=== PATIENT | female | born 1970 | race Caucasian/White ===

== ENCOUNTER → 2017-09-15 | Outpatient (CLI) | payer BC ==
[~2017-09-15] MED LIST: AZIT250 PO; CEFU250 PO; CLOB.05TO; Celebrex200 MG PO; Cipro500 MG PO; Colace250 MG PO; ERGO50000 PO; Faslodex250 MG/5 M IM; Flagyl500 MG PO; HYDACE5; HYDACE5 PO; HYDR1TAB94 PO; IBUP800; IBUP800 PO; LEVFLO500 PO; Norco 5-325 Ta1 EACH PO; ONDA4 PO; PHENA200 PO; PRED10 PO; PSEU120ER PO; RXPHEN200 PO; SERT50 PO; SOMA350 MG PO; TAMO10 PO; TAMO20; VALA500 PO; Vistaril25 MG PO; [UNRECOGNIZED DRUG - REMARK]
== END ==
LOC: LAB SHORT 18:52 → LAB EV 18:52
DX: L08.9 Local infection of the skin and subcutaneous tissue, unspecified (principal)
CPT/HCPCS: 87070; 87077; 87147; 87186

== ENCOUNTER → 2018-08-11 | Outpatient (CLI) | payer OTHER, BC | END | disposition home or self-care (01) | LOC: LAB SHORT 16:52 → LAB EV 16:52 | DX: R30.0 Dysuria (principal) | CPT/HCPCS: 87086 ==

== ENCOUNTER → 2019-07-06 | Outpatient (CLI) | payer BC | LOC: LAB SHORT 16:01 → LAB EV 16:01 | DX: J02.9 Acute pharyngitis, unspecified (principal) | CPT/HCPCS: 87081; 87147 ==

== ENCOUNTER 2021-05-21 14:37 | Emergency (ER) | payer OTHER, BC ==
[~2021-05-21] VITALS: Ht 162.6 cm; Wt 79.4 kg
[2021-05-21 15:18] LABS: BASOPHILS ABSOLUTE AUTO 0.05 K/mm3 (0.00-0.23); BASOPHILS PERCENT AUTO 1 % (0-2); EOSINOPHILS ABSOLUTE AUTO 0.12 K/mm3 (0.00-0.68); EOSINOPHILS PERCENT AUTO 2 % (0-6); Hematocrit 37.9 % (33.0-51.0); Hemoglobin 12.4 g/dL (11.5-16.0); IMMATURE GRAN ABSOLUTE AUTO 0.01 K/mm3 (0.00-0.10); IMMATURE GRAN PERCENT AUTO 0 % (0-1); LYMPHOCYTES ABSOLUTE AUTO 1.82 K/mm3 (0.84-5.20); LYMPHOCYTES PERCENT AUTO 27 % (21-46); MONOCYTES ABSOLUTE AUTO 0.45 K/mm3 (0.16-1.47); MONOCYTES PERCENT AUTO 7 % (4-13); Mean Corpuscular HGB 28.9 pg (26.0-34.0); Mean Corpuscular HGB Conc 32.7 g/dL (31.5-36.5); Mean Corpuscular Volume 88 fL (80-100); Mean Platelet Volume 9.7 fL (9.1-12.4); NEUTROPHILS ABSOLUTE AUTO 4.25 K/mm3 (1.96-9.15); NEUTROPHILS PERCENT AUTO 64 % (41-73); Platelet Count 268 K/mm3 (150-400); RDW Coefficient Variation 12.9 % (11.7-14.2); RDW Standard Deviation 41.8 fL (35.1-46.3); Red Blood Cell Count 4.29 M/mm3 (3.80-5.20)
[2021-05-21 15:52] LABS: Albumin, Blood 3.8 g/dL (3.4-5.0); Albumin/Globulin Ratio 1.1 (0.8-1.8); Bilirubin, Total 0.3 mg/dL (0.1-1.0); Bun/Creatinine Ratio 18.4 (12.0-20.0); Calcium, Blood 8.9 mg/dL (8.5-10.1); Creatinine, Blood 0.98 mg/dL (0.40-1.00); Globulin, Blood 3.4 g/dL (2.2-4.0); Potassium, Blood 4.1 mmol/L (3.5-5.5); Total Protein, Blood 7.2 g/dL (6.4-8.2)
[2021-05-21 19:06] LABS: Source, Urine Voided
[2021-05-21 19:13] LABS: Appearance, Urine Clear (Clear); Bilirubin, Urine Neg (Neg); Blood, Urine 1+ (Neg); Color, Urine Yellow (P-Yellow); Glucose Qualitative, Urine Neg (Neg); Ketones, Urine Neg (Neg); Leukocyte Esterase, Urine Neg (Neg); Nitrite, Urine Neg (Neg); Protein, Urine Neg (Neg); Specific Gravity, Urine 1.015 (1.003-1.022); Urobilinogen, Urine NORM (Normal)
[2021-05-21 19:31] LABS: Bacteria Mod /hpf; Mucus Light (0-Heavy); Red Blood Cells, Urine 0-2 /hpf (0-2); Squamous Epithelial Cells Rare /hpf (Few); Transitional Epithelial Cells Rare /hpf (0-Rare); White Blood Cells, Urine 0-2 /hpf (0-5)
== END 2021-05-21 20:09 | disposition home or self-care (01) ==
LOC: ER 14:37
PROVIDERS: Emergency Medicine; Physician Assistant
DX: R10.32 Left lower quadrant pain (principal); Z88.0 Allergy status to penicillin; Z88.1 Allergy status to other antibiotic agents; Z88.2 Allergy status to sulfonamides; Z88.8 Allergy status to other drugs, medicaments and biological substances
CPT/HCPCS: 36415; 74176; 80053; 81001; 83690; 85025; 87086

== ENCOUNTER → 2022-02-20 | Outpatient (CLI) | payer OTHER, BC ==
[~2022-02-20] MED LIST changes: +METO10 PO; +PROM12.5S PR
== END | disposition home or self-care (01) ==
LOC: LAB SHORT 16:18 → LAB 16:18
DX: R11.2 Nausea with vomiting, unspecified (principal)
CPT/HCPCS: 87086

== ENCOUNTER → 2022-02-22 | Outpatient (CLI) | payer OTHER, BC ==
[2022-02-22 11:18] LABS: Hematocrit 36.2 % (33.0-51.0); Hemoglobin 12.1 g/dL (11.5-16.0); Mean Corpuscular HGB 29.9 pg (26.0-34.0); Mean Corpuscular HGB Conc 33.4 g/dL (31.5-36.5); Mean Corpuscular Volume 89 fL (80-100); Mean Platelet Volume 9.8 fL (9.1-12.4); Platelet Count 324 K/mm3 (150-400); RDW Coefficient Variation 14.8 % (11.7-14.2); RDW Standard Deviation 48.3 fL (35.1-46.3); Red Blood Cell Count 4.05 M/mm3 (3.80-5.20)
[2022-02-22 11:45] LABS: BAND PERCENT MAN 2 % (0-8); BASOPHILS ABSOLUTE MAN 0.07 K/mm3 (0.00-0.23); BASOPHILS PERCENT MAN 2 % (0-2); EOSINOPHILS ABSOLUTE MAN 0.15 K/mm3 (0.00-0.68); EOSINOPHILS PERCENT MAN 4 % (0-6); LYMPHOCYTES ABSOLUTE MAN 0.81 K/mm3 (0.84-5.20); LYMPHOCYTES PERCENT MAN 21 % (21-46); MONOCYTES ABSOLUTE MAN 0.03 K/mm3 (0.16-1.47); MONOCYTES PERCENT MAN 1 % (4-13); SEG NEUTROPHILS PERCENT MAN 70 % (41-73); TOTAL CELLS COUNTED 100
[2022-02-22 11:58] LABS: Albumin, Blood 3.3 g/dL (3.4-5.0); Albumin/Globulin Ratio 0.9 (0.8-1.8); Bilirubin, Direct 0.2 mg/dL (0.0-0.3); Bilirubin, Indirect 0.3 mg/dL (0.1-0.7); Bilirubin, Total 0.5 mg/dL (0.1-1.0); Calcium, Blood 8.7 mg/dL (8.5-10.1); Creatinine, Blood 0.78 mg/dL (0.40-1.00); Globulin, Blood 3.7 g/dL (2.2-4.0); Potassium, Blood 3.4 mmol/L (3.5-5.5)
== END | disposition home or self-care (01) ==
LOC: LAB SHORT 10:49 → LAB 10:49
PROVIDERS: Internal Medicine Nephrology
DX: N18.2 Chronic kidney disease, stage 2 (mild) (principal); D63.1 Anemia in chronic kidney disease; N25.81 Secondary hyperparathyroidism of renal origin; E55.9 Vitamin D deficiency, unspecified; E78.00 Pure hypercholesterolemia, unspecified; R76.9 Abnormal immunological finding in serum, unspecified; R94.5 Abnormal results of liver function studies; R94.6 Abnormal results of thyroid function studies
CPT/HCPCS: 36415; 80053; 82248; 84100; 85025

== ENCOUNTER 2022-02-26 11:32 | Day surgery (SDC) | payer OTHER, BC | END 2022-02-26 16:56 | disposition home or self-care (01) | LOC: ATC 11:32 | DX: C50.911 Malignant neoplasm of unspecified site of right female breast (principal); C78.89 Secondary malignant neoplasm of other digestive organs; C79.11 Secondary malignant neoplasm of bladder; E56.0 Deficiency of vitamin E; Z88.0 Allergy status to penicillin; Z88.2 Allergy status to sulfonamides; Z90.13 Acquired absence of bilateral breasts and nipples | CPT/HCPCS: 96360; J7030 ==

== ENCOUNTER 2022-04-15 11:17 | Emergency (ER) | payer OTHER, BC ==
[~2022-04-15] VITALS: Ht 165.1 cm; Wt 61.2 kg
[2022-04-15 12:42] LABS: BASOPHILS ABSOLUTE AUTO 0.05 K/mm3 (0.00-0.23); BASOPHILS PERCENT AUTO 1 % (0-2); EOSINOPHILS ABSOLUTE AUTO 0.13 K/mm3 (0.00-0.68); EOSINOPHILS PERCENT AUTO 3 % (0-6); Hematocrit 26.9 % (33.0-51.0); Hemoglobin 8.9 g/dL (11.5-16.0); IMMATURE GRAN ABSOLUTE AUTO 0.04 K/mm3 (0.00-0.10); IMMATURE GRAN PERCENT AUTO 1 % (0-1); LYMPHOCYTES ABSOLUTE AUTO 0.96 K/mm3 (0.84-5.20); LYMPHOCYTES PERCENT AUTO 21 % (21-46); MONOCYTES ABSOLUTE AUTO 0.42 K/mm3 (0.16-1.47); MONOCYTES PERCENT AUTO 9 % (4-13); Mean Corpuscular HGB Conc 33.1 g/dL (31.5-36.5); Mean Corpuscular Volume 94 fL (80-100); Mean Platelet Volume 9.6 fL (9.1-12.4); NEUTROPHILS ABSOLUTE AUTO 2.95 K/mm3 (1.96-9.15); NEUTROPHILS PERCENT AUTO 65 % (41-73); Platelet Count 357 K/mm3 (150-400); RDW Coefficient Variation 17.7 % (11.7-14.2); RDW Standard Deviation 59.6 fL (35.1-46.3); Red Blood Cell Count 2.87 M/mm3 (3.80-5.20); White Blood Cell Count 4.55 K/mm3 (4.00-11.30)
[2022-04-15 13:01] LABS: Albumin, Blood 2.3 g/dL (3.4-5.0); Albumin/Globulin Ratio 0.7 (0.8-1.8); Bilirubin, Total 0.2 mg/dL (0.1-1.0); Bun/Creatinine Ratio 32.4 (12.0-20.0); Creatinine, Blood 0.62 mg/dL (0.40-1.00); Globulin, Blood 3.1 g/dL (2.2-4.0); Potassium, Blood 4.5 mmol/L (3.5-5.5); Total Protein, Blood 5.4 g/dL (6.4-8.2)
[2022-04-15] MEDS ORDERED: ONDA4ODT MM (15:41)
[2022-04-15] MEDS ORDERED: PANT40 PO (15:42)
[2022-04-15] MEDS ORDERED: LORA1 PO (15:42)
[2022-04-15 16:14] LABS: Source, Urine Clean Catch
[2022-04-15 16:19] LABS: Appearance, Urine Hazy (Clear); Bilirubin, Urine Neg (Neg); Blood, Urine 5+ (Neg); Color, Urine Yellow (P-Yellow); Glucose Qualitative, Urine Neg (Neg); Ketones, Urine Neg (Neg); Leukocyte Esterase, Urine 2+ (Neg); Nitrite, Urine Neg (Neg); Protein, Urine 3+ (Neg); Urobilinogen, Urine NORM (Normal)
[2022-04-15 16:35] LABS: Red Blood Cells, Urine TNTC /hpf (0-2); Squamous Epithelial Cells Few /hpf (Few)
[2022-04-15 16:36] LABS: Bacteria Mod /hpf; Yeast/Fungi Urine Mod /hpf
== END 2022-04-15 17:00 | disposition home or self-care (01) ==
LOC: ER 11:17
PROVIDERS: Physician Assistant; Student in an Organized Health Care Education/Training Program
DX: R10.30 Lower abdominal pain, unspecified (principal); R11.0 Nausea; Z79.899 Other long term (current) drug therapy; Z88.0 Allergy status to penicillin; Z88.2 Allergy status to sulfonamides; Z88.8 Allergy status to other drugs, medicaments and biological substances; Z85.3 Personal history of malignant neoplasm of breast
CPT/HCPCS: 36415; 74177; 80053; 81001; 85025; 87086; 99284-25; A9270; Q9967

== ENCOUNTER 2022-07-11 01:04 | Day surgery (SDC) | payer OTHER, BC ==
[~2022-07-11 01:04] MED LIST changes: +LORA1 PO; +ONDA4ODT MM; +PANT40 PO
[2022-07-11 11:08] LABS: BASOPHILS ABSOLUTE AUTO 0.02 K/mm3 (0.00-0.23); BASOPHILS PERCENT AUTO 0 % (0-2); EOSINOPHILS ABSOLUTE AUTO 0.19 K/mm3 (0.00-0.68); EOSINOPHILS PERCENT AUTO 2 % (0-6); Hematocrit 38.6 % (33.0-51.0); Hemoglobin 12.9 g/dL (11.5-16.0); IMMATURE GRAN ABSOLUTE AUTO 0.02 K/mm3 (0.00-0.10); IMMATURE GRAN PERCENT AUTO 0 % (0-1); LYMPHOCYTES ABSOLUTE AUTO 1.13 K/mm3 (0.84-5.20); LYMPHOCYTES PERCENT AUTO 13 % (21-46); MONOCYTES ABSOLUTE AUTO 0.48 K/mm3 (0.16-1.47); MONOCYTES PERCENT AUTO 6 % (4-13); Mean Corpuscular HGB 27.8 pg (26.0-34.0); Mean Corpuscular HGB Conc 33.4 g/dL (31.5-36.5); Mean Corpuscular Volume 83 fL (80-100); Mean Platelet Volume 9.4 fL (9.1-12.4); NEUTROPHILS ABSOLUTE AUTO 6.84 K/mm3 (1.96-9.15); NEUTROPHILS PERCENT AUTO 79 % (41-73); Platelet Count 371 K/mm3 (150-400); RDW Coefficient Variation 16.3 % (11.7-14.2); RDW Standard Deviation 49.5 fL (35.1-46.3); Red Blood Cell Count 4.64 M/mm3 (3.80-5.20); White Blood Cell Count 8.68 K/mm3 (4.00-11.30)
[2022-07-11] MEDS ORDERED: OXYC5 PO ×2 (11:40)
[2022-07-11 11:41] LABS: Alanine Aminotransfer (ALT/SGP 137 U/L (12-78); Albumin, Blood 2.6 g/dL (3.4-5.0); Albumin/Globulin Ratio 0.9 (0.8-1.8); Alk Phos 206 U/L (50-136); Anion Gap 6 mmol/L (6-16); Aspartate Aminotrans (AST/SGOT 163 U/L (12-37); Bilirubin, Total 0.4 mg/dL (0.1-1.0); Blood Urea Nitrogen 26 mg/dL (8-24); CO2, Blood 25 mmol/L (21-32); Calcium, Blood 7.9 mg/dL (8.5-10.1); Chloride, Blood 100 mmol/L (98-108); Creatinine, Blood 0.67 mg/dL (0.40-1.00); Glomerular Filtration Rate 104 (60-); Glucose, Blood 121 mg/dL (70-99); Magnesium, Blood 2.5 mg/dL (1.6-2.4); Phosphorus, Blood 3.3 mg/dL (2.5-4.9); Potassium, Blood 3.9 mmol/L (3.5-5.5); Sodium, Blood 131 mmol/L (136-145); Total Protein, Blood 5.6 g/dL (6.4-8.2); Triglycerides 137 mg/dL (30-160)
[2022-07-11] MEDS ORDERED: TRANSDERM-SCOP1 EA13 TD (11:41)
[2022-07-11] MEDS ORDERED: [UNRECOGNIZED DRUG - CODE] PR (11:41)
[2022-07-11] MEDS ORDERED: OXYB5 PO (11:43)
[2022-07-11] MEDS ORDERED: ZYPREXA2.5 MG PO (11:43)
[2022-07-11] MEDS ORDERED: ZOLOFT50 MG PO (11:43)
--- NOTE | 2022-07-11 11:54 | NUR ---
LABS FAXED TO [facility] PER ORDERS
--- NOTE | 2022-07-11 11:58 | NUR ---
PRIOR TO CALLING [facility] AND THE TEAM TAKING THE PATIENT TO THE ER FOR EVALUATION, PT AND CAREGIVER WERE EDUCATED REGARDING LOW BLOOD PRESSURE AND THE POSSIBLE NEED FOR IV FLUIDS TO INCREASE THE BLOOD PRESSURE. DISCUSSED SYMPTOMS WITH BOTH AND PATIENT VERBALIZED THAT SHE WAS SYMPTOMATIC. DURING EDUCATION PT BECOME UNRESPONSIVE AND [facility]PONSE WAS CALLED.
== END 2022-07-11 10:50 | disposition short-term general hospital (02) ==
LOC: ATC 01:04
PROVIDERS: Internal Medicine Hematology & Oncology
DX: E63.8 Other specified nutritional deficiencies (principal); Z88.0 Allergy status to penicillin; Z88.2 Allergy status to sulfonamides; C50.911 Malignant neoplasm of unspecified site of right female breast
CPT/HCPCS: 36415; 80053; 83735; 84100; 84134; 84478; 85025; 99212

== ENCOUNTER 2022-07-11 10:51 | Inpatient (IN) | payer OTHER, BC ==
[~2022-07-11] VITALS: Ht 165.1 cm; Wt 51.5 kg
[2022-07-11] MEDS ORDERED: OXYC5 PO ×2 (11:40)
[2022-07-11] MEDS ORDERED: [UNRECOGNIZED DRUG - CODE] PR (11:41)
[2022-07-11] MEDS ORDERED: TRANSDERM-SCOP1 EA13 TD (11:41)
[2022-07-11] MEDS ORDERED: ZYPREXA2.5 MG PO (11:43)
[2022-07-11] MEDS ORDERED: OXYB5 PO (11:43)
[2022-07-11] MEDS ORDERED: ZOLOFT50 MG PO (11:43)
--- NOTE | 2022-07-11 18:13 | NUR ---
Shift Summary Received report from Rosangela, [id number]. Patient arrived with friend at bedside via gurney. LR infusing at 100 mls/hr into already accessed mediport upon arrival. Per Rosangela, mediport was accessed by ATC prior to admit. Self transferred to bed, two RN skin assessment done with Jennifer and myself. 1p SBA to bsc. Declined dizziness with movements. Tele placed, ST 107. Medicated for nausea. Settled to room, call light nearby.
--- NOTE | 2022-07-11 20:29 | NUR ---
ALERT AND ORIENTED. QUIET UNLESS SPOKEN TO. VISITORS AT BEDSIDE. TO STAY THE NIGHT FOR SUPPORT. IVF OF LR INFUSING AT 100ML/HR. REQUESTED AND RECEIVED PRN OF ATIVAN. DENIED VERTIGO WHEN ASKED. RAILS UP X 2. CALL LIGHT IN REACH. AM RN REPORTED PT ABLE TO USE BEDSIDE COMMODE BY SELF. COMMODE BY BED. AGREES TO USE CALL LIGHT IF NEEDS ARRISE
[2022-07-12 01:57] LABS: Adenovirus F 40/41 Not Detected (NOT DETECT); Astrovirus Not Detected (NOT DETECT); Campylobacter Sp Not Detected (NOT DETECT); Cryptosporidium Not Detected (NOT DETECT); Cyclospora Cayetanensis Not Detected (NOT DETECT); E. Coli O157 Not Detected (NOT DETECT); Entamoeba Histolytica Not Detected (NOT DETECT); Enteroaggregative E. coli-EAEC Not Detected (NOT DETECT); Enteropathogenic E. coli-EPEC Not Detected (NOT DETECT); Enterotoxigenic E. coli-ETEC Not Detected (NOT DETECT); Giardia Lamblia Not Detected (NOT DETECT); Norovirus GI/GII Not Detected (NOT DETECT); Plesiomonas Shigelloides Not Detected (NOT DETECT); Rotavirus A Not Detected (NOT DETECT); Salmonella Sp Not Detected (NOT DETECT); Sapovirus Not Detected (NOT DETECT); Shiga Toxin-prod E. coli-STEC Not Detected (NOT DETECT); Shigella/Enteroin E. coli-EIEC Not Detected (NOT DETECT); Vibrio Cholerae Not Detected (NOT DETECT); Vibrio Sp Not Detected (NOT DETECT); Yersinia Enterocolitica Not Detected (NOT DETECT)
[2022-07-12 04:43] LABS: BASOPHILS ABSOLUTE AUTO 0.02 K/mm3 (0.00-0.23); BASOPHILS PERCENT AUTO 0 % (0-2); EOSINOPHILS ABSOLUTE AUTO 0.17 K/mm3 (0.00-0.68); EOSINOPHILS PERCENT AUTO 3 % (0-6); Hematocrit 29.8 % (33.0-51.0); Hemoglobin 9.8 g/dL (11.5-16.0); IMMATURE GRAN ABSOLUTE AUTO 0.02 K/mm3 (0.00-0.10); IMMATURE GRAN PERCENT AUTO 0 % (0-1); LYMPHOCYTES ABSOLUTE AUTO 1.02 K/mm3 (0.84-5.20); LYMPHOCYTES PERCENT AUTO 16 % (21-46); MONOCYTES ABSOLUTE AUTO 0.28 K/mm3 (0.16-1.47); MONOCYTES PERCENT AUTO 5 % (4-13); Mean Corpuscular HGB Conc 32.9 g/dL (31.5-36.5); Mean Corpuscular Volume 85 fL (80-100); Mean Platelet Volume 9.8 fL (9.1-12.4); NEUTROPHILS ABSOLUTE AUTO 4.71 K/mm3 (1.96-9.15); NEUTROPHILS PERCENT AUTO 76 % (41-73); Platelet Count 226 K/mm3 (150-400); RDW Coefficient Variation 16.6 % (11.7-14.2); RDW Standard Deviation 51.8 fL (35.1-46.3); White Blood Cell Count 6.22 K/mm3 (4.00-11.30)
--- NOTE | 2022-07-12 05:20 | NUR ---
SHIFT SUMMARY PATIENT IS ALERT AND ORIENTED. PATIENT HAS HAD NO ACUTE EVENTS THIS SHIFT. VITAL SIGNS REVIEWED. LR INFUSING AT 100/HR. AT BEDSIDE. GI PANEL COLLECTED AND CAME BACK NEGATIVE. PATIENT HAD NAUSEA EARLIER IN SHIFT, HAS SINCE RESOLVED. PATIENT HAS NOT COMPLAINED OF PAIN, SOB, OR VOMITTING THIS SHIFT. BED IN LOCKED AND LOWEST POSITION. CALL LIGHT IN PLACE. WILL MONITOR UNTIL SHIFT CHANGE.
[2022-07-12 05:45] LABS: Albumin, Blood 1.9 g/dL (3.4-5.0); Albumin/Globulin Ratio 0.8 (0.8-1.8); Bilirubin, Total 0.3 mg/dL (0.1-1.0); Bun/Creatinine Ratio 33.2 (12.0-20.0); Calcium, Blood 7.7 mg/dL (8.5-10.1); Creatinine, Blood 0.63 mg/dL (0.40-1.00); Globulin, Blood 2.3 g/dL (2.2-4.0); Potassium, Blood 3.8 mmol/L (3.5-5.5); Total Protein, Blood 4.2 g/dL (6.4-8.2)
--- NOTE | 2022-07-12 17:03 | NUR ---
SHIFT SUMMARY NO ACUTE CHANGES DURING SHIFT. PT ALERT AND ORIENTED, CALLS APPROPRIATELY. PT REMAINS ON RA, INDEPENDENT IN ROOM. CLINIMIX INFUSING @ 100ML/HR. DIETARY TO SEE PT TOMORROW FOR TPN INITIATION. PTS DIARRHEA DECREASED CURRENTLY, NAUSEA STILL ACTIVE, ZOFRAN AND REGLAN NEEDED. WILL CONTINUE TO MONITOR. CALL LIGHT WITHIN REACH.
--- NOTE | 2022-07-13 04:27 | NUR ---
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 A&OX4. PATIENT EFFECTIVELY COMMUNICATES NEEDS. VSS. RR EVEN AND UNLABORED ON RA. NO EPISODES OF HYPOTENSION OR SYNCOPE THIS SHIFT. CLINDIMIX AND FAT EMULSIONS INFUSING PER ORDERS. PATIENT REPORTED PERSISTENT REFLUX SO THIS RN OBTAINED AN ORDER FOR A GI COCKTAIL, WHICH WAS EFFECTIVE. BED LOW AND LOCKED. CALL LIGHT WITHIN REACH. BED LOW AND LOCKED. THIS RN WILL CONTINUE TO MONITOR.
[2022-07-13 05:15] LABS: Albumin, Blood 1.9 g/dL (3.4-5.0); Anion Gap 3 mmol/L (6-16); Blood Urea Nitrogen 23 mg/dL (8-24); Bun/Creatinine Ratio 44.4 (12.0-20.0); CO2, Blood 27 mmol/L (21-32); Calcium, Blood 7.5 mg/dL (8.5-10.1); Chloride, Blood 101 mmol/L (98-108); Creatinine, Blood 0.52 mg/dL (0.40-1.00); Glomerular Filtration Rate 111 (60-); Glucose, Blood 117 mg/dL (70-99); Phosphorus, Blood 3.4 mg/dL (2.5-4.9); Sodium, Blood 131 mmol/L (136-145)
[2022-07-13] MEDS ORDERED: LOPE2C PO ×2 (15:12)
[2022-07-13] MEDS ORDERED: MIDO5 PO ×2 (15:13)
--- NOTE | 2022-07-13 16:06 | NUR ---
CALLED DR DELUNA- PT HAS HOME INFUSIONS OF TPN TO BE COMPLETED, HOME HEALTH WILL CHANGE THE ACCESS TO HER PORT ON WEDNESDAY. PORT WILL BE HEPARIN LOCKED PRIOR TO DISCHARGE SO PT SPOUSE CAN RUN HER TPN DAILY. IV WILL BE DC'D AT THIS TIME WELL TELE.
--- NOTE | 2022-07-13 17:16 | NUR ---
DISCHARGE NOTE- PT WAS GIVEN VERBAL AND WRITTEN DISCHARGE INSTRUCTIONS AND ACKNOWLEDGED UNDERSTANDING OF THEM. IV AND TELE DC'D PRIOR TO DISCHARGE. MEDIPORT HEPARIN LOCKED AND DRESSING REINFORCED. PT SPOUSE ASSISTED HER TO GET DRESSED, PT ESCORTED OUT VIA WC BY THE WOOL PRESSER. NO S&S OF DISTRESS AT THE TIME OF DISCHARGE.
== END 2022-07-13 16:29 | disposition home or self-care (01) | DRG 314 ==
LOC: ER 10:51 → MEDS 16:11 → ER 17:31 → MEDS 17:42
PROVIDERS: ADMIT Family Medicine
PROC: 02HV33Z Insertion of Infusion Device into Superior Vena Cava, Percutaneous Approach (ICD-10-PCS; principal; 2022-07-11)
DX: I95.9 Hypotension, unspecified (principal); E43 Unspecified severe protein-calorie malnutrition; K52.1 Toxic gastroenteritis and colitis; E87.1 Hypo-osmolality and hyponatremia; C79.89 Secondary malignant neoplasm of other specified sites; Z68.1 Body mass index [BMI] 19.9 or less, adult; E86.0 Dehydration; T45.1X5A Adverse effect of antineoplastic and immunosuppressive drugs, initial encounter; R94.5 Abnormal results of liver function studies; E88.09 Other disorders of plasma-protein metabolism, not elsewhere classified; E86.1 Hypovolemia; D63.8 Anemia in other chronic diseases classified elsewhere; D63.0 Anemia in neoplastic disease; Z88.2 Allergy status to sulfonamides; Z88.1 Allergy status to other antibiotic agents; Z88.0 Allergy status to penicillin; Z79.899 Other long term (current) drug therapy; Z79.891 Long term (current) use of opiate analgesic; Z87.19 Personal history of other diseases of the digestive system; Z85.3 Personal history of malignant neoplasm of breast; Z90.49 Acquired absence of other specified parts of digestive tract; Z90.13 Acquired absence of bilateral breasts and nipples
CPT/HCPCS: 71045; 80053; 80069; 83880; 84484; 85025; 87507; 93005; 93010; 96360; 96372; 96374; 96376; 99284-25; A9270; G0378; J1642; J1650; J2405; J2765; J7030; J7120

== ENCOUNTER → 2022-09-03 | Outpatient (CLI) | payer OTHER, BC ==
[~2022-09-03] MED LIST changes: +LOPE2C PO; +MIDO5 PO; +OXYB5 PO; +OXYC5 PO; +TRANSDERM-SCOP1 EA13 TD; +ZOLOFT50 MG PO; +ZYPREXA2.5 MG PO; +[UNRECOGNIZED DRUG - CODE] PR
[2022-09-03 20:15] LABS: BASOPHILS ABSOLUTE AUTO 0.03 K/mm3 (0.00-0.23); BASOPHILS PERCENT AUTO 1 % (0-2); EOSINOPHILS ABSOLUTE AUTO 0.04 K/mm3 (0.00-0.68); EOSINOPHILS PERCENT AUTO 1 % (0-6); Hematocrit 24.4 % (33.0-51.0); Hemoglobin 7.7 g/dL (11.5-16.0); IMMATURE GRAN ABSOLUTE AUTO 0.02 K/mm3 (0.00-0.10); IMMATURE GRAN PERCENT AUTO 0 % (0-1); LYMPHOCYTES ABSOLUTE AUTO 2.06 K/mm3 (0.84-5.20); LYMPHOCYTES PERCENT AUTO 32 % (21-46); MONOCYTES ABSOLUTE AUTO 0.84 K/mm3 (0.16-1.47); MONOCYTES PERCENT AUTO 13 % (4-13); Mean Corpuscular HGB 27.9 pg (26.0-34.0); Mean Corpuscular HGB Conc 31.6 g/dL (31.5-36.5); Mean Corpuscular Volume 88 fL (80-100); Mean Platelet Volume 10.5 fL (9.1-12.4); NEUTROPHILS ABSOLUTE AUTO 3.54 K/mm3 (1.96-9.15); NEUTROPHILS PERCENT AUTO 54 % (41-73); Platelet Count 281 K/mm3 (150-400); RDW Standard Deviation 63.6 fL (35.1-46.3); Red Blood Cell Count 2.76 M/mm3 (3.80-5.20); White Blood Cell Count 6.53 K/mm3 (4.00-11.30)
[2022-09-03 20:20] LABS: Albumin, Blood 2.5 g/dL (3.4-5.0); Albumin/Globulin Ratio 1.3 (0.8-1.8); Bilirubin, Total 0.1 mg/dL (0.1-1.0); Calcium, Blood 8.1 mg/dL (8.5-10.1); Creatinine, Blood 0.61 mg/dL (0.40-1.00); Globulin, Blood 1.9 g/dL (2.2-4.0); Magnesium, Blood 1.7 mg/dL (1.6-2.4); Phosphorus, Blood 4.6 mg/dL (2.5-4.9); Potassium, Blood 3.9 mmol/L (3.5-5.5); Prealbumin, Blood 17.3 mg/dL (20.0-40.0); Total Protein, Blood 4.4 g/dL (6.4-8.2)
== END | disposition home or self-care (01) ==
LOC: LAB SHORT 18:00 → LAB 18:00
PROVIDERS: Internal Medicine Hematology & Oncology
DX: E43 Unspecified severe protein-calorie malnutrition (principal)
CPT/HCPCS: 80053; 83735; 84100; 84134; 85025

== ENCOUNTER → 2022-09-07 | Outpatient (CLI) | payer OTHER, BC ==
[2022-09-08 06:44] LABS: BASOPHILS ABSOLUTE AUTO 0.03 K/mm3 (0.00-0.23); BASOPHILS PERCENT AUTO 1 % (0-2); EOSINOPHILS ABSOLUTE AUTO 0.11 K/mm3 (0.00-0.68); EOSINOPHILS PERCENT AUTO 3 % (0-6); Hemoglobin 7.7 g/dL (11.5-16.0); IMMATURE GRAN ABSOLUTE AUTO 0.02 K/mm3 (0.00-0.10); IMMATURE GRAN PERCENT AUTO 1 % (0-1); LYMPHOCYTES ABSOLUTE AUTO 0.85 K/mm3 (0.84-5.20); LYMPHOCYTES PERCENT AUTO 25 % (21-46); MONOCYTES ABSOLUTE AUTO 0.37 K/mm3 (0.16-1.47); MONOCYTES PERCENT AUTO 11 % (4-13); Mean Corpuscular HGB 28.3 pg (26.0-34.0); Mean Corpuscular HGB Conc 32.1 g/dL (31.5-36.5); Mean Corpuscular Volume 88 fL (80-100); Mean Platelet Volume 10.7 fL (9.1-12.4); NEUTROPHILS ABSOLUTE AUTO 2.06 K/mm3 (1.96-9.15); NEUTROPHILS PERCENT AUTO 60 % (41-73); Platelet Count 291 K/mm3 (150-400); RDW Coefficient Variation 19.6 % (11.7-14.2); RDW Standard Deviation 61.8 fL (35.1-46.3); Red Blood Cell Count 2.72 M/mm3 (3.80-5.20); White Blood Cell Count 3.44 K/mm3 (4.00-11.30)
[2022-09-08 06:46] LABS: Alanine Aminotransfer (ALT/SGP 19 U/L (12-78); Albumin, Blood 2.2 g/dL (3.4-5.0); Alk Phos 51 U/L (50-136); Anion Gap 4 mmol/L (6-16); Aspartate Aminotrans (AST/SGOT 14 U/L (12-37); Bilirubin, Total <0.1 mg/dL (0.1-1.0); Blood Urea Nitrogen 18 mg/dL (8-24); Bun/Creatinine Ratio 32.7 (12.0-20.0); CO2, Blood 25 mmol/L (21-32); Calcium, Blood 7.4 mg/dL (8.5-10.1); Chloride, Blood 107 mmol/L (98-108); Creatinine, Blood 0.55 mg/dL (0.40-1.00); Globulin, Blood 2.2 g/dL (2.2-4.0); Glomerular Filtration Rate 110 (60-); Glucose, Blood 85 mg/dL (70-99); Magnesium, Blood 1.8 mg/dL (1.6-2.4); Phosphorus, Blood 3.5 mg/dL (2.5-4.9); Potassium, Blood 4.1 mmol/L (3.5-5.5); Prealbumin, Blood 14.4 mg/dL (20.0-40.0); Sodium, Blood 136 mmol/L (136-145); Total Protein, Blood 4.4 g/dL (6.4-8.2); Triglycerides 71 mg/dL (30-160)
== END | disposition home or self-care (01) ==
LOC: LAB SHORT 16:00 → LAB 16:00
PROVIDERS: Internal Medicine Hematology & Oncology
DX: E43 Unspecified severe protein-calorie malnutrition (principal)
CPT/HCPCS: 80053; 83735; 84100; 84134; 84478; 85025